=== PATIENT | female | born 2005 | race Caucasian/White ===

== ENCOUNTER 2025-01-17 01:58 | Emergency (ER) | payer OTHER, SELFPAY ==
--- OUTSIDE RECORDS SUMMARY | 2025-01-17 02:00 | XMS_ITS | Clinical Summary ---
[facility] Address [address] [place] [id number] Care Team Providers Care Watch Inspector Name Role Phone Pcp, No Primary Care Provider Unavailabl e Allergies No known active allergies Medications No known medications Encounters Date Type Department Care Team Description 01/05/2025 2:15 PM CDT Orders Only [facility] [address] [place] [address] Lab, [facility] 01/04/2025 Travel 12/13/2024 3:05 PM CDT Office Visit [facility] [address] [place] [address] Harjit Navarro MD Musculoskeletal Problem (Follow-up RIGHT Soto pain/Review MRI/Lexa Athlete ) 12/13/2024 Travel 12/08/2024 Travel 11/19/2024 2:15 PM PLYWOOD SCARFER TENDER Ancillary Procedure [facility] [id number] [place] [id number] 11/19/2024 1:30 PM PLYWOOD SCARFER TENDER Ancillary Procedure [facility] [address] [address] 11/18/2024 Travel 11/14/2024 3:00 PM PLYWOOD SCARFER TENDER Office Visit [facility] at [address] [address] Harjit Navarro MD Musculoskeletal Problem (Lexa Athlete being seen for RIGHT Soto pain) 11/14/2024 Travel from Last 3 Months Immunizations Immunization Administration Dates Next Due COVID-19 VACCINE COMIRNATY (ZENTICKET 30MCG/0.3ML) 12YO+ PFS 07/05/2024 DTaP 06/24/2010, 7,01/02/2006,12/01,2005 HIB PRP-OMP (PedvaxHIB) 2005 HPV 9 (Gardasil 9) 08/06/2016 Hepatitis A (Peds) 12/30/2006,07/01/2006 Hepatitis B (Peds) 04/03/2006, 6,2005,07/02 Hib Conjugate, Unspecified 09/28/2006,2005 Inactivated Polio Vaccine 06/24/2010,,01/02/2006,10/28 Influenza Virus, Unspecified 07/05/2024, 11/12/2023,08/06/2016,08/08,07/18/2014,07/06/2013,06/21/2012 ,06/23/2011,06/24/2010,07/24/2009,05/15,06/26/2008,06/30/2007, 7,07/23/2006 MMR 06/28/2009 MMRV 09/28/2006 Meningococcal Vaccine (Menactra) 08/06/2016 Pneumococcal conj 13-Valent (Prevnar 13) 07/01/2006,04/03/2006,01/02/2006 Pneumococcal conj 7-Valent (Prevnar 7) 6 Varicella Vaccine 06/28/2009 meningococcal B, Recombinant 05/17/2024,11/12/19 24 Social History Tobacco Use Types Packs/Day Years Used Date Smoking Tobacco: Never Tobacco Cessation:Counseling Given: Not Answered Comments No Sex and Gender Information Value Date Recorded Sex Assigned at Not on file Legal Sex Female 3:31 PM CDT Gender Identity Not on file Sexual Orientation Not on file Obstetrics History Para Term AB IAB SAB Ectopic Multiple Livin g Live Births 0 0 0 0 0 0 0 0 0 0 0 Last Filed Vital Signs Vital Sign Reading Time Taken Comments Blood Pressure 116/71 12/13/2024 3:20 PM CDT Pulse 68 12/13/2024 3:20 PM CDT Temperature - - Respiratory Rate 12 11/14/2024 10:16 PM PLYWOOD SCARFER TENDER Oxygen Saturation 99% 12/13/2024 3:20 PM CDT Inhaled Oxygen Concentration - - Weight 83.1 kg (183 lb 3.2 oz) 12/13/2024 3:20 P M CDT Height 172.7 cm (5' 8) 07/04/2024 3:18 PM CDT Body Mass Index - - Plan of Treatment Health Maintenance Due Date Last Done Comments Well Child Check for age 3-20 05/28/2008 Tdap 2016 HPV series for age 9-26 (2 - 2-dose series) 02/03/2017 08/06/2016 Depression screening for age 12+ 2017 HIV for age 15-65 2020 Chlamydia for age 16-24 2021 Hepatitis C screening for age 18-79 2023 BMI (ht and wt on same day) for age 18+ 07/04/2025 07/04/2024 Pneumococcal series for age 6-49 Completed 07/01/2006, 04/03/2006, 01/02/2006, Additional history exists Meningococcal series for age 11-21 Aged Out 08/06/2016 No longer eligible based on patient's age to complete this topic COVID-19 vaccine series Completed 07/05/2024 Influenza Vaccine Completed 07/05/2024, , 08/06/2016, Additional history exists Procedures Procedure Name Priority Date/Time Associated Diagnosis Comments VITAMIN D 25 (DEFICIENCY) Routine 01/05/2025 2:19 PM CDT Vitamin D deficiency CBC WITH AUTO DIFFERENTIAL Routine 01/05/2025 2:19 PM CDT Stress reaction of bone COMP METABOLIC PANEL Routine 01/05/2025 2:19 PM CDT Stress reaction of bone TSH WITH REFLEX Routine 01/05/2025 2:19 PM CDT Stress reaction of bone FERRITIN Routine 01/05/2025 2:19 PM CDT Stress reaction of bone MR TIBIA FIBULA LEFT WO Routine 11/19/2024 2:37 PM [employer]YWOOD SCARFER TENDER Left leg numbness MR TIBIA FIBULA RIGHT WO Routine 11/19/2024 2:36 PM [employer]YWOOD SCARFER TENDER Pain in right soto from Last 3 Months Results * TSH WITH REFLEX (01/05/2025 2:19 PM CDT) TSH W/REFLEX TO FT4 1.51 mIU/L [facility] Comment: Reference Range 1-19 Years 0.50-4.30 Ranges First trimester 0.26-2.66 Second trimester 0.55-2.73 Third trimester 0.43-2.91 Blood BLOOD SPECIMEN / Unknown 01/05/2025 2:19 PM CDT 01/05/2025 2:19 PM CDT Harjit Navarro MD CHEMISTRY Final Res ult [facility] [address] [place] [address], [facility] [address] [place] [address] * (ABNORMAL) VITAMIN D 25 (DEFICIENCY) (01/05/2025 2:19 PM CDT) VITAMIN D,25-OH,TOTAL,IA 26(L) 30 - 100 ng/mL [facility] Comment: Vitamin D Status 25-OH Vitamin D: Deficiency: <20 ng/mL Insufficiency: 20 - 29 ng/mL Optimal: > or = 30 ng/mL For 25-OH Vitamin D testing on patients on D2-supplementation and patients for whom quantitation of D2 and D3 fractions is required, the [facility](TM) 25-OH VIT D, (D2,D3), LC/MS/MS is recommended: order code 95095 (patients >2yrs). See Note 1 Note 1 For additional information, please refer to http://education.K[employer]/faq/ONA235 (This link is being provided for informational/ educational purposes only.) Blood BLOOD SPECIMEN / Unknown 01/05/2025 2:19 PM CDT 01/05/2025 2:19 PM CDT Harjit Navarro MD SEND OUTS Final Res ult [facility] [address] [place] [address], [facility] [address] [place] [address] * CBC AND DIFFERENTIAL (01/05/2025 2:19 PM CDT) Pathologist [facility] [place] WHITE BLOOD CELL COUNT 7.5 3.8 - 10.8 Thousand/u L [facility] RED BLOOD CELL COUNT 4.50 3.80 - 5.10 Million/uL [facility] HEMOGLOBIN 14.4 11.7 - 15.5 g/dL [facility] HEMATOCRIT 42.4 35.0 - 45.0 % [facility] MCV 94.2 80.0 - 100.0 fL [facility] MCH 32.0 27.0 - 33.0 pg [facility] MCHC 34.0 32.0 - 36.0 g/dL [facility] Comment: For adults, a slight decrease in the calculated MCHC value (in the range of 30 to 32 g/dL) is most likely not clinically significant; however, it should be interpreted with caution in correlation with other red cell parameters and the patient's clinical condition. RDW 11.6 11.0 - 15.0 % [facility] PLATELET COUNT 340 140 - 400 Thousand/u L [facility] MPV 9.2 7.5 - 12.5 fL [facility] ABSOLUTE NEUTROPHILS 4,395 1,500 - 7,800 cells/uL [facility] ABSOLUTE LYMPHOCYTES 2,355 850 - 3,900 cells/uL [facility] ABSOLUTE MONOCYTES 593 200 - 950 cells/uL [facility] ABSOLUTE EOSINOPHILS 90 15 - 500 cells/uL [facility] ABSOLUTE BASOPHILS 68 0 - 200 cells/uL [facility] NEUTROPHILS 58.6 % [facility] LYMPHOCYTES 31.4 % [facility] MONOCYTES 7.9 % [facility] EOSINOPHILS 1.2 % [facility] BASOPHILS 0.9 % [facility] Blood BLOOD SPECIMEN / Unknown 01/05/2025 2:19 PM CDT 01/05/2025 2:19 PM CDT Harjit Navarro MD HEMATOLOGY Final Res ult [facility] [address] [place] [address], [place] [phone] [facility] [address] [place] [address] * FERRITIN (01/05/2025 2:19 PM CDT) Pathologist [facility] [place] FERRITIN 21 16 - 154 ng/mL [facility] Blood BLOOD SPECIMEN / Unknown 01/05/2025 2:19 PM CDT 01/05/2025 2:19 PM CDT Harjit Navarro MD CHEMISTRY Final Res ult [facility] [employer] [facility] [address] [place] [address], [place] [phone] [facility] [address] [place] [address] * COMP METABOLIC PANEL (01/05/2025 2:19 PM CDT) Pathologist [facility] [place] GLUCOSE 98 65 - 99 mg/dL [facility] Comment: Fasting reference interval UREA NITROGEN (BUN) 17 7 - 20 mg/dL [facility] CREATININE 0.70 0.50 - 0.96 mg/dL [facility] EGFR 128 > OR = 60 mL/min/1. 73m2 [facility] BUN/CREATININE RATIO SEE NOTE: 6 - 22 (calc) [facility] Comment: Not Reported: BUN and Creatinine are within reference range. SODIUM 139 135 - 146 mmol/L [facility] POTASSIUM 4.3 3.8 - 5.1 mmol/L [facility] CHLORIDE 101 98 - 110 mmol/L [facility] CARBON DIOXIDE 32 20 - 32 mmol/L [facility] CALCIUM 9.9 8.9 - 10.4 mg/dL [facility] PROTEIN, TOTAL 7.2 6.3 - 8.2 g/dL [facility] ALBUMIN 4.8 3.6 - 5.1 g/dL [facility] GLOBULIN 2.4 2.0 - 3.8 g/dL (calc) [facility] ALBUMIN/GLOBULIN RATIO 2.0 1.0 - 2.5 (calc) [facility] BILIRUBIN, TOTAL 0.3 0.2 - 1.1 mg/dL [facility] ALKALINE PHOSPHATASE 75 36 - 128 U/L [facility] AST 19 12 - 32 U/L [facility] ALT 15 5 - 32 U/L [facility] Blood BLOOD SPECIMEN / Unknown 01/05/2025 2:19 PM CDT 01/05/2025 2:19 PM CDT us Harjit Navarro MD CHEMISTRY Final Res ult [facility] [address] [place] [address], [facility] [address] [place] [address] * MR TIBIA FIBULA LEFT WO (11/19/2024 2:37 PM PLYWOOD SCARFER TENDER) Anatomical Region Laterality Modality LEG L Magnetic Resonan ce 11/21/2024 5:04 PM CDT Impressions 11/21/2024 5:04 PM CDT 1. Mild stress reaction in the distal tibial diaphysis. 2. Remainder unremarkable. Dictated by Jorge Weeks MD @ 11/21/2024 5:04:24 PM (Electronically Signed) Narrative 11/21/2024 5:04 PM CDT For Patients: As a result of the Cures Act, medical imaging exams and procedure reports are released immediately into your electronic medical record. You may view this report before your referring provider. If you have questions, please contact your health care provider. EXAM: MRI OF THE LEFT TIBIA AND FIBULA, WITHOUT CONTRAST CLINICAL INDICATION: Distal soto pain. COMPARISON PLAIN FILMS: 07/07/2024 ankle and foot radiographs. COMPARISON CROSS-SECTIONAL IMAGING STUDIES: None. TECHNICAL: Axial, sagittal and coronal T1 and STIR images. FINDINGS: OSSEOUS STRUCTURES AND SOFT TISSUES: Mild periosteal edema in the anteromedial aspect of the distal tibial diaphysis. Findings consistent with stress reaction without discrete stress fracture (Fredericson grade 1). No intramedullary edema or cortical abnormality. No osseous lesion. No subcutaneous hematoma or fluid collection. MYOTENDINOUS STRUCTURES: No muscle atrophy or edema. Myotendinous junctions are maintained. No tendon tear. NEUROVASCULAR STRUCTURES: No abnormality of visualized neurovascular structures. Procedure Note Jorge Weeks MD - 11/21/2024 For Patients: As a result of the s Act, medical imagingexams and procedure reports are released immediately into your electronicmedical record. You may view this report before your referring provider.If you have questions, please contact your health care provider. EXAM: MRI OF THE LEFT TIBIA AND FIBULA, WITHOUT CONTRAST CLINICAL INDICATION: Distal soto pain. COMPARISON PLAIN FILMS: 07/07/2024 ankle and foot radiographs. COMPARISON CROSS-SECTIONAL IMAGING STUDIES: None. TECHNICAL: Axial, sagittal and coronal T1 and STIR images. FINDINGS: OSSEOUS STRUCTURES AND SOFT TISSUES: Mild periosteal edema in the anteromedial aspect of the distal tibialdiaphysis. Findings consistent with stress reaction without discretestress fracture (Fredericson grade 1). No intramedullary edema or corticalabnormality. No osseous lesion. No subcutaneous hematoma or fluidcollection. MYOTENDINOUS STRUCTURES: No muscle atrophy or edema. Myotendinous junctions are maintained. Notendon tear. NEUROVASCULAR STRUCTURES: No abnormality of visualized neurovascular structures. IMPRESSION: 1. Mild stress reaction in the distal tibial diaphysis. 2. Remainder unremarkable. Dictated by Jorge Weeks MD @ 11/21/2024 5:04:24 PM (Electronically Signed) Harjit Navarro MD MR Final Res ult * MR TIBIA FIBULA RIGHT WO (11/19/2024 2:36 PM PLYWOOD SCARFER TENDER) Anatomical Region Laterality Modality LEG R Magnetic Resonan ce 11/21/2024 5:01 PM CDT Impressions 11/21/2024 5:01 PM CDT 1. Mild periosteal edema in the anteromedial aspect of the distal tibial diaphysis. 2. Remainder unremarkable. Dictated by Jorge Weeks MD @ 11/21/2024 5:01:32 PM (Electronically Signed) Narrative 11/21/2024 5:01 PM CDT For Patients: As a result of the Cures Act, medical imaging exams and procedure reports are released immediately into your electronic medical record. You may view this report before your referring provider. If you have questions, please contact your health care provider. EXAM: MRI OF THE RIGHT TIBIA AND FIBULA, WITHOUT CONTRAST CLINICAL INDICATION: Right medial distal 3rd soto pain. COMPARISON PLAIN FILMS: None. COMPARISON CROSS-SECTIONAL IMAGING STUDIES: None. TECHNICAL: Axial, sagittal and coronal T1 and STIR images. FINDINGS: OSSEOUS STRUCTURES AND SOFT TISSUES: Mild periosteal edema in the anteromedial aspect of the distal tibial diaphysis. Findings consistent with stress reaction without discrete stress fracture (Fredericson grade 1). No intramedullary edema or cortical abnormality. No osseous lesion. No subcutaneous hematoma or fluid collection. MYOTENDINOUS STRUCTURES: No muscle atrophy or edema. Myotendinous junctions are maintained. No tendon tear. NEUROVASCULAR STRUCTURES: No abnormality of visualized neurovascular structures. Procedure Note Jorge Weeks MD - 11/21/2024 For Patients: As a result of the Cures Act, medical imagingexams and procedure reports are released immediately into your electronicmedical record. You may view this report before your referring provider.If you have questions, please contact your health care provider. EXAM: MRI OF THE RIGHT TIBIA AND FIBULA, WITHOUT CONTRAST CLINICAL INDICATION: Right medial distal 3rd soto pain. COMPARISON PLAIN FILMS: None. COMPARISON CROSS-SECTIONAL IMAGING STUDIES: None. TECHNICAL: Axial, sagittal and coronal T1 and STIR images. FINDINGS: OSSEOUS STRUCTURES AND SOFT TISSUES: Mild periosteal edema in the anteromedial aspect of the distal tibialdiaphysis. Findings consistent with stress reaction without discretestress fracture (Fredericson grade 1). No intramedullary edema or corticalabnormality. No osseous lesion. No subcutaneous hematoma or fluidcollection. MYOTENDINOUS STRUCTURES: No muscle atrophy or edema. Myotendinous junctions are maintained. Notendon tear. NEUROVASCULAR STRUCTURES: No abnormality of visualized neurovascular structures. IMPRESSION: 1. Mild periosteal edema in the anteromedial aspect of the distal tibialdiaphysis. 2. Remainder unremarkable. Dictated by Jorge Weeks MD @ 11/21/2024 5:01:32 PM (Electronically Signed) us Harjit Navarro MD MR Final Res ult from Last 3 Months Insurance [employer] Care Teams Watch Inspector Relationship Specialty Start Date End Date Pcp, No . PCP - General 07/07/24
--- OUTSIDE RECORDS SUMMARY | 2025-01-17 02:00 | XMS_ITS | Clinical Summary ---
Author Organization [facility], [facility], and [facility] Address [address] [facility] [place] [address] [place] [address] Care Team Providers Care Machine Veneer Repairer Name Role Phone Ayleen Gorman MD Unavailable Allergies No known active allergies Medications No known medications Active Problems Problem Noted Date Diagnosed Date Closed nondisplaced fracture of proximal phalanx of left thumb 08/25/2019 Social History Tobacco Use Types Packs/Day Years Used Date Smoking Tobacco: Never Smokeless Tobacco: Never Alcohol Use Standard Drinks/Week Comments Never 0 (1 standard drink = 0.6 oz pur e alcohol) AUDIT-C Answer Date Recorded Q1: How often do you have a drink containing alc ohol? Never 02/07/2020 Average Number of Drinks Not on file 020 Frequency of Binge Drinking Not on file 01/13 Comments Unknown Sex and Gender Information Value Date Recorded Sex Assigned at Not on file Legal Sex Female 12:08 PM EDT Gender Identity Not on file Sexual Orientation Not on file Plan of Treatment Health Maintenance Due Date Last Done Comments HIV SCREENING 2018 IMM: HPV (1 - 3-dose series) 2020 IMM: Meningococcal B (1 of 2 - Standard) 2021 Hepatitis C screening 2023 COVID-19 Vaccine (2023-2 5 season) 2024 IMM: DTap/ Tdap/ Td (1 - Tdap) 2024 IMM: Influenza (Season Ended) 2025 IMM: RSV (1 - 1-dose 75+ series) 2080 Pneumococcal Vaccine: Pediat rics (0 to 5 Years) and At-Risk Patients (6 to 49 Years) Aged Out No longer eligible b ased on patient's age to complete [place] [address] [employer] [place] [address] [place] [address] [place] [place] [address] [place] [address] [place] [address] Care Teams Machine Veneer Repairer Relationship Specialty Start Date End Date Ayleen Gorman MD [address] [place] [address] Attending Physician Pediatric - General 02/07/20
--- OUTSIDE RECORDS SUMMARY | 2025-01-17 02:01 | XMS_ITS | Data Portability ---
Author Organization [place] [facility] [place] Address [address] [address] Assessment No assessment recorded. Plan of Treatment Reminders Order Date Submit Date Provider Last Modified By Organization Details Last Modified Time Details Appointments None recorded. Lab unlisted lab - sickle cell screen 2023 024 [facility], [address], [place], [address], 03:26:52 unlisted lab - ferritin 2023 024 [facility], [address], [place], [address], 03:26:52 test, urine 2023 024 rowena 40 CP [facility], [address] [place] [address], [address], 4 12:40:08 CBC w/ auto diff 2023 024 basil 98 [facility], [address] [place] [address], [address], 16:31:34 urinalysis, dipstick 2023 024 basil 98 [facility], [address] [place] [address] [place], [address], 16:31:36 test, urine 2023 024 basil 98 [facility], [address] [facility] [address], [address], [place], [address], 16:31:38 CT + NG RNA, PCR, unspecified specimen 2023 024 MILAN [facility], [address] [place] [address] Rd, [address], [place], [address], 12:36:30 Referral None recorded. Procedures None recorded. Surgeries None recorded. Imaging None recorded. Medication Orders None recorded. Patient TargetsNo targets recorded. Patient Instructions Encounter Date Encounter Id Patient Instructions Last Modified By Organization Details Last Modified Time 11/12/2023 [id number] pediatric health questionnaire for adolescent* [email or web address] Not available 11/12/2023 16:31:31 taty GREEN e abuse screening for adolescents* [email or web address] Not available 11/12/2023 16:31:31 vision screen: Snellen* Not available 11/12/2023 16:31:37 05/17/2024 [id number] venous blood draw* [email or web address] Not avai lable 05/24/2024 14:54:29 Reason for Referral None Reported. Results Created Date Observation Date Name Description Value Unit Range Abnormal Flag Note LastModifiedBy Organization Detail LastModifiedTime 11/12/1911/13/2023 CHLAM YDIA/ N. GONOR RHOEA E RNA, TMA, UROGE NITAL chlamydia trachomatis RNA, tma, urogenital NOT DETECT ED not detect ed normal Not Available [facility] - [place] [address] [place], [address], 11/13/2023 12:36:30 11/12/19 24 11/13/2023 CHLAM YDIA/ N. GONOR RHOEA E RNA, TMA, UROGE NITAL neisseria gonorrhoeae RNA, tma, urogenital NOT DETECT ED not detect ed normal Not Available [facility] [place], [address], 11/13/2023 12:36:30 11/12/19 24 11/13/2023 ALETA PENA/ Elizabeth WRAYOR RHOEA E RNA, TMA, UROGE NITAL comment The markus tical perfo rmanc e elvie cteri stics of this assay , when used to test SureP ath(T M) speci mens have been deter mined by [facility]. The modif icati ons have not been clear ed or appro rosa by the FDA. This assay has been valid ated pursu ant to the CLIA regul ation s and is used for clini linda purpo ses. For addit ional infor sangeetha huynh e refer to https ://ed ucati on.qu estAgilis Systems. ProBueno/f aq/FA Q154 (This link is being provi ded for infor edmond smyth/ aditya agostoona l purpo ses only. ) Not Available [facility] [address] [place], [address], 11/13/2023 12:36:30 11/12/19 24 11/12/2023 pregn adam test, urine HCG negati ve Not Available [facility] [address] [place] [address], [address], 11/12/2023 15:57:15 11/12/19 24 11/12/2023 urina lysis , dipst ick Leukocytes Negati ve Not Available [facility] [address] [place] [address], [address], 11/12/2023 08:44:47 11/12/19 24 11/12/2023 urina lysis , dipst ick Nitrite Negati ve Not Available [facility] [address] [place] [address], [address], 11/12/2023 08:44:47 11/12/19 24 11/12/2023 urina lysis , dipst ick Urobilinogen .2 Not Available [facility] , [place], [address], 11/12/2023 08:44:47 11/12/19 24 11/12/2023 urina lysis , dipst ick Protein Negati ve Not Available [facility] , [place], [address], 11/12/2023 08:44:47 11/12/19 24 11/12/2023 urina lysis , dipst ick pH 6.0 Not Available [facility] , [place], [address], 11/12/2023 08:44:47 11/12/19 24 11/12/2023 urina lysis , dipst ick Blood Negati ve Not Available [facility] , [place], [address], 11/12/2023 08:44:47 11/12/19 24 11/12/2023 urina lysis , dipst ick Specific [place] 1.015 Not Available [facility] , [place], [address], 11/12/2023 08:44:47 11/12/19 24 11/12/2023 urina lysis , dipst ick Ketone Negati ve Not Available [facility] [address] [place] [address], [place], [address], 11/12/2023 08:44:47 11/12/19 24 11/12/2023 urina lysis , dipst ick Bilirubin Negati ve Not Available [facility] [address] [place] [address], [place], [address], 11/12/2023 08:44:47 11/12/19 24 11/12/2023 urina lysis , dipst ick Glucose Negati ve Not Available [facility] [address] , [place], [address], 11/12/2023 08:44:47 11/12/19 24 11/12/2023 urina lysis , dipst ick Appearance Clear Not Available [facility] , [place], [address], 11/12/2023 08:44:47 11/12/19 24 11/12/2023 urina lysis , dipst ick Color Yellow Not Available [facility] , [place], [address], 11/12/2023 08:44:47 11/12/19 24 11/12/2023 CBC w/ auto diff WBC 7.5 thous and/u L Not Available [facility] , [place], [address], 11/12/2023 08:44:47 11/12/19 24 11/12/2023 CBC w/ auto diff RBC carrie on/uL Not Available [facility] [address] [place] [address], [place], [address], 11/12/2023 08:44:47 11/12/19 24 11/12/2023 CBC w/ auto diff hemoglobin 14.9 g/dL Not Available [facility] , [place], [address], 11/12/2023 08:44:47 11/12/19 24 11/12/2023 CBC w/ auto diff hematocrit 44.0 % Not Available [facility] , [place], [address], 11/12/2023 08:44:47 11/12/19 24 11/12/2023 CBC w/ auto diff MCV fL Not Available [facility] [address] [place] [address], [place], [address], 11/12/2023 08:44:47 11/12/19 24 11/12/2023 CBC w/ auto diff MCH pg Not Available [facility] [address] [place] [address], [place], [address], 11/12/2023 08:44:47 11/12/19 24 11/12/2023 CBC w/ auto diff MCHC g/dL Not Available [facility] [address] [place] [address], [place], [address], 11/12/2023 08:44:47 11/12/19 24 11/12/2023 CBC w/ auto diff RDW % Not Available [facility] [address] [place] [address], [place], [address], 11/12/2023 08:44:47 11/12/19 24 11/12/2023 CBC w/ auto diff platelet count 314. Not Available [facility] [address] [place] [address], [place], [address], 11/12/2023 08:44:47 11/12/19 24 11/12/2023 CBC w/ auto diff MPV fL Not Available [facility] [address] [place] [address], [place], [address], 11/12/2023 08:44:47 11/12/19 24 11/12/2023 CBC w/ auto diff absolute lymphocytes thous and/u L Not Available [facility] [address] [place] [address], [place], [address], 11/12/2023 08:44:47 11/12/19 24 11/12/2023 CBC w/ auto diff absolute monocytes thous and/u L Not Available [facility] [address] [place] [address], [place], [address], 11/12/2023 08:44:47 11/12/19 24 11/12/2023 CBC w/ auto diff lymphocytes % Not Available [facility] [address] , [place], [address], 11/12/2023 08:44:47 11/12/19 24 11/12/2023 CBC w/ auto diff monocytes % Not Available [facility] , [place], [address], 11/12/2023 08:44:47 11/12/19 24 11/12/2023 CBC w/ auto diff granulocytes % Not Available [facility] [address] [place], [address], 11/12/2023 08:44:47 11/12/19 24 11/12/2023 CBC w/ auto diff absolute granulocytes thous and/u L Not Available [facility] [address] , [place], [address], 11/12/2023 08:44:47 11/12/19 24 11/12/2023 visio n scree n: Marilee en* Unknown Analyte Uncorr ected Not Available [facility] [address] [place], [address], 11/12/2023 15:43:19 11/12/19 24 11/12/2023 visio n scree n: Marilee en* Unknown Analyte 20/ Not Available [facility] , [place], [address], 11/12/2023 15:43:19 11/12/19 24 11/12/2023 visio n scree n: Marilee en* Unknown Analyte Uncorr ected Not Available [facility] [address] [place], [address], 11/12/2023 15:43:19 02/29/11/12/2023 visio n scree n: Marilee en* Unknown Analyte Not Available [facility] [address] [place], [address], 11/12/2023 15:43:19 05/17/20 24 05/18/2024 SICKL E CELL SCREE N sickle cell screen NEGATI VE negati ve normal Hemog lobin solub ility testi ng alone is insuf ficie nt for detec ting or confi rming the prese nce of sickl ing hemog lobin s in some situa tions . Addit ional testi ng may be requi red for diagn osis of hemog lobin opath ies. For addit ional infor sangeetha huynh refer to http: //[facility] mick smyth.que stdia gnost ics.c om/fa q/FAQ 99v1 (This link is being provi ded for infor edmond alcazar/ eductobias rubio purpo ses only. ) Not Available [facility] [place], [address], 05/18/2024 22:10:22 05/17/20 24 05/18/2024 JOANNE TIN ferritin 17 NG/mL 6-67 normal Not Available [facility] [place], [address], 05/18/2024 03:26:52 05/17/20 24 05/17/2024 pregn adam test, urine HCG negati ve Not Available [facility] [address] [place], [address], 05/17/2024 10:46:07 Result Notes None recorded. Problems Name Problem SNOMED Code Status Onset Date Resolution Date Notes Provider Name and Address Organization Details Recorded Time Well child visit Completed 201206/17/2023 10/23/19 22 - Comments only - Sharon Muñiz MD - Growth and developm ent assessed Guidance provided and question s answered Confiden tial guidance provided Counsele d on diet and exercise Dentist every 6 months Eye doctor referral CBC and UA reviewed BP and vision reviewed Due for vaccinat ions today; Menactra and flu vaccines Follow up in 1 year TeenScre en results reviewed and discusse d with patient. No identifi ed risk factors for depressi on or other mental illness. Provided counseli ng on the diseases to be vaccinat ed against as well as the risks/be nefits of providin g and withhold ing recommen ded vaccines to be given today to Rosangela barry. All question s were answered and the parent verbaliz ed understa nding. VIS made availabl e. Problem Code: Z00.129; Problem Code Type: ICD-10; Not Available [facility] 3 00:44:37 Acute pharyngi tis [id number] Completed 201211/10/2013 09/09/20 13 - Comments only - Sofia Edwards MD - Rapid strep test negative . The throat culture has been sent to the lab. We will call patient if throat culture is positive and prescrib e an antibiot ic treatmen t. In the meantime , I recommen d rest and fluids. Fever and pain control discusse d. If fever lasts for more than 4 to 5 days, or if symptoms are worsenin g, patient should return to the office for reevalua tion. Would stat away form otehr relatibv es until she is well - EMR Migratio n Problem Code: J02.9; Problem Code Type: ICD-10; Not Available [facility] 3 00:44:37 Increase d frequenc y of urinatio n [id number] Completed 201301/23/2014 11/24/19 14 - Comments only - Dc tillman MD - UA looks decent;W ill hold off on treatmen t until UC results tomorrow ;Push alot of fluids today.Mo m in agreemen t with plan. - EMR Migratio n Problem Code: R35.0; Problem Code Type: ICD-10; Not Available [facility] 3 00:44:37 Exercise s educatio n, guidance , and counseli ng Completed 201909/21/2020 Problem Code: Z71.82; Problem Code Type: ICD-10; Not Available [facility] 3 00:44:38 Eating disorder 62059498 Completed 201906/17/2023 01/30/20 20 - Comments only - Sharon Muñiz MD - [facility]erred [facility] Provided list of contacts for eating disorder specialt y treatmen t Will follow up with Mom pending lab and EKG results for inpatien t vs. outpatin et therapy Discusse d reasons to seek care and how to reach doctor application development consultant - EMR Migratio n Problem Code: F50.9; Problem Code Type: ICD-10; Not Available [facility] 3 00:44:38 Abnormal weight loss 016358852 Completed 201906/17/2023 01/30/20 20 - Comments only - Sharon Muñiz MD - Concern for eating disorder . Patient at 73% of ideal body weight for height. Referral list provided for disorder ed eating speciali st Labs sent today; pending labs and EKG will recommen d inpatien t vs outpatin et therapy Patient to eat 3 meals a day of foods of her choice, eliminat e high calorie burning activiti es (ie basketba ll drills but ok to shoot foul shots). Ok to go on casual walks outside with mom for mental health and fresh air, no running until further evaluati on Advised on reasons to seek care in emergenc y room and how to reach doctor application development consultant - EMR Migratio n Problem Code: R63.4; Problem Code Type: ICD-10; Not Available [facility] 3 00:44:38 Bradycar nicolas [id number] Completed 201906/17/2023 Problem Code: R00.1; Problem Code Type: ICD-10; Not Available [facility] 3 00:44:38 Hypoglyc emia 637245784 Completed 201906/17/2023 Problem Code: E16.2; Problem Code Type: ICD-10; Not Available [facility] 3 00:44:38 Disorder of bilirubi n metaboli sm 69676951 Completed 201906/17/2023 Problem Code: E80.6; Problem Code Type: ICD-10; Not Available [facility] 3 00:44:38 Anorexia nervosa, restrict ing type 59852994 Completed 201906/17/2023 09/27/19 21 - Comments only - Sharon Muñiz MD - Continue to recommen d eating disorder therapy despite paitent' s success in maintain ing weight and vegan diet - EMR Migratio n Problem Code: F50.01; Problem Code Type: ICD-10; Not Available [facility] 3 00:44:38 Loss of appetite 50689888 Completed 201906/17/2023 10/23/19 22 - Comments only - Sharon Muñiz MD - Not currentl y in therapy and not interest ed in returnin g to therapy Appropri ate weight gain from prior visit Problem Code: R63.0; Problem Code Type: ICD-10; Not Available [facility] 3 00:44:38 Exercise s educatio n, guidance , and counseli ng Completed 202009/27/2021 Problem Code: Z71.82; Problem Code Type: ICD-10; Not Available [facility] 3 00:44:38 Major depressi on, single episode 06822799 Completed 202006/17/2023 09/27/19 21 - Comments only - Sharon Muñiz MD - Concerns for depressi on in confiden tial intervie w today. With Geneviev e's permissi on, discusse d with mom and recommen ded therapy. `~~`Roger es SI/HI. - EMR Migratio n Problem Code: F32.9; Problem Code Type: ICD-10; Not Available [facility] 3 00:44:39 Disorder of pigmenta tion 072996098 Completed 202006/17/2023 09/27/19 21 - Comments only - Sharon Muñiz MD - Rough patches of hyperpig mentatio n on bilatera l upper extremit ies and left ankle. `~~`Refe r to dermatol ogy - EMR Migratio n Problem Code: L81.9; Problem Code Type: ICD-10; Not Available [facility] 3 00:44:39 Exercise s educatio n, guidance , and counseli ng Completed 202110/24/2021 Problem Code: Z71.82; Problem Code Type: ICD-10; Not Available [facility] 00:44:39 Amenorrh ea 53981346 Active 202110/24/19 - Comments only - Sofia Edwards MD - discuss possible etiology SHe needs to see Endo / AGRI BUSINESS AGENT at increase d risk for osteoper osis may expect heavy menses due to unoppose d estrogen may consider trial of Provera once evaluati on is complete d Problem Code: N91.2; Problem Code Type: ICD-10; Not Available [facility] 00:44:39 Normal weight 48603075 Completed 202210/29/2022 Problem Code: Z68.52; Problem Code Type: ICD-10; Not Available [facility] 00:44:39 Adolesce nt care Active 202210/24/19 - Comments only - Sofia Edwards MD - School form given. TeenScre en results reviewed and discusse d with patient. No identifi ed risk factors for depressi on or other mental illness. A drug and alcohol abuse screen was performe d and no areas of concern were identifi ed. The results were reviewed with the patient. Pediatri c symptom checklis t was reviewed and discusse d with parent/g uardian. There were no answers which were of concern, or indicati ve of cognitiv e, emotiona l or behavior al disturba nce. Tubercul osis risk assessme nt complete d and no risk factors identifi ed. CBC Ua within normal limits' Anticipa tory guidance given; immuniza tions reviewed and updated. RTC in 1 year, sooner prn. Provided counseli ng on the diseases to be vaccinat ed against as well as the risks/be nefits of providin g and withhold ing recommen ded vaccines to be given today to Rosangela barry. All question s were answered and the parent verbaliz ed understa nding. VIS made availabl e. Problem Code: Z00.3; Problem Code Type: ICD-10; Not Available [facility] 3 00:44:39 Primary amenorrh ea 218184611 Active 2022 Problem Code: N91.0; Problem Code Type: ICD-10; Not Available [facility] 3 00:44:39 Exercise s educatio n, guidance , and counseli ng Completed 202210/29/2022 Problem Code: Z71.82; Problem Code Type: ICD-10; Not Available [facility] 3 00:44:39 Sciatica 20626822 Active 202210/24/19 23 - Comments only - Sofia Edwards MD - given dx of sciatica Pain is interfer ing with her running and she is getting no relief from PT plan Sports med consult Problem Code: M54.30; Problem Code Type: ICD-10; Not Available [facility] 3 00:44:40 Acute pharyngi tis 808971584 Active 202202/18/20 - Comments only - Ashish Ross MD - strep neg Patient most likely with a viral illneess . Symptoma tic treatmen t was discusse d with parent/c aregiver . Signs and symptoms of worsenin g were discuss. Call office if no improvem ent or symptoms worsen. Problem Code: J02.9; Problem Code Type: ICD-10; Not Available [facility] 3 00:44:40 Exposure to viral hepatiti s Completed 202010/24/2022 Problem Code: Z20.5; Problem Code Type: ICD-10; Not Available [facility] 3 00:44:40 Puncture wound of left foot [id number] 720009 Completed 202010/24/2022 Problem Code: S91.332A ; Problem Code Type: ICD-10; Not Available [facility] 3 00:44:40 Fever 662574574 Completed 201910/24/2022 Problem Code: R50.9; Problem Code Type: ICD-10; Not Available [facility] 3 00:44:40 Scar conditio ns and fibrosis of skin 771352099 Completed 201710/24/2022 Problem Code: L90.5; Problem Code Type: ICD-10; Not Available [facility] 3 00:44:40 Exposure to Human immunode ficiency virus Completed 202010/24/2022 Problem Code: Z20.6; Problem Code Type: ICD-10; Not Available [facility] 3 00:44:40 Itching of skin 829449972 Completed 201710/24/2022 Problem Code: L29.8; Problem Code Type: ICD-10; Not Available [facility] 3 00:44:41 Abdomina l pain 66923472 Completed 201306/17/2023 12/28/19 14 - Comments only - Dc tillman MD - Probaly mild viral GE;Clear s onlr till am;Call in am. - EMR Migratio n Problem Code: R10.9; Problem Code Type: ICD-10; Not Available [facility] 3 00:44:41 Underwei ght 208459397 Completed 201906/17/2023 Problem Code: Z68.51; Problem Code Type: ICD-10; Not Available [facility] 3 00:44:41 Streptoc occal sore throat 73294857 Completed 201212/23/2014 12/24/19 13 - Comments only - Ashish Ross MD - Instruct ed to take antibiot ic as prescrib ed. Possible adverse reaction s and side effects discusse d. Recommen d hydratio n and rest. May use analgesi a. May return to school after 24 hours of antibiot ics. Medicati ons: AMOXICIL STACIE 400 MG/5ML SUSR - 10 ml PO BID for 10 days - EMR Migratio n Problem Code: J02.0; Problem Code Type: ICD-10; Not Available [facility] 3 00:44:41 Acute laryngit is 5406889 Completed 201211/08/2013 09/09/20 13 - Comments only - Sofia Edwards MD - probably virla warm liquids fluids himid air - EMR Migratio n Problem Code: J04.0; Problem Code Type: ICD-10; Not Available [facility] 3 00:44:41 Amenorrh ea 69437306 Completed 01/14202006/18/2023 09/27/19 21 - Comments only - Sharon Muñiz MD - Discusse d that it can be normal to have period prior to turning 16yo. Gave name of flaco regard if patient does not start with menses prior to 16yo birthday . - EMR Migratio n Problem Code: N91.2; Problem Code Type: ICD-10; Not Available [facility] 3 00:44:41 Impetigo 94743224 Completed 201910/24/2022 Problem Code: L01.00; Problem Code Type: ICD-10; Not Available [facility] 3 00:44:41 Immuniza tion due 328955665 Completed 201910/24/2022 ProblemC ode: 'Z28.3'; ProblemC odeType: 'ICD-10' ; Not Available [facility] 3 00:44:42 Diet educatio n Completed 202210/29/2022 ProblemC ode: 'Z71.3'; ProblemC odeType: 'ICD-10' ; Not Available [facility] 3 00:44:42 Acute sinusiti s 80433890 Active 202207/06/20 23 - New - Natalie Smith [employer]IM[employer] - Discusse d finding with Rosangela barry and explaine d that most sinus or upper resp infecgti ons are viral. Reviewed symptoma tic treatmen t. Covid rapid negative , sent out a PCR due to recent immediat e exposure . Continue to take at home tests and reurn to office if sx persist or worsen after the next 7 days. Problem Code: J01.90; Problem Code Type: ICD-10; Not Available [facility] 4 18:25:52 Problem Notes None recorded. Procedures Surgical History Date Name Laterality Status Provider Name and Address Organization Details Recorded Time 4 Capillary Blood Draw completed Natalie Smith NP [address], [place], [address], [facility] 11/12/2023 16:27:56 4 sASQ Ask Suicide Screening Questions completed Natalie Smith NP [address], [place] [phone] [place] [address] 11/12/2023 16:28:07 4 BRYAN-7 (General Anxiety Disorder-7) completed Natalie Smith NP [address], [place], [address], [facility] 11/12/2023 16:27:58 4 TB Risk Assessment for Pad5/Mobile completed Natalie Smith NP [address], [place], [address], [facility] 11/12/2023 16:28:02 4 PHQ 2/9 pad5/Mobile (Standard) completed Natalie Smith NP [address], [address] [place] [address] 11/12/2023 16:27:59 4 PSC-17 Padx/Mobile (Standard) completed Natalie Smith NP [address] [phone] [place] [address] 11/12/2023 16:28:00 Imaging Results None recorded. Procedure Notes None recorded. Medical Equipment None Reported. Allergies No known drug allergies Medications Name Sig Start Date Stop Date Status Note LastModified by Organization Details LastModified Time Augmentin 875 mg-125 mg tablet Take 1 tablet by mouth twice a day 06/01 completed Not Available Not Available Not Available amoxicill in 400 mg/5 mL oral suspensio n 10 ml PO BID for 10 days 01/02 completed - EMR Migration Not Available Not Available Not Available Vitals Date Recorded Body height Body mass index (BMI) [Percentile] Per age and sex Body mass index (BMI) Body weight Systolic blood pressure Diastolic blood pressure Provider Name and Address Organization Details Last Updated DateTime 4 170.18 cm 70 % 23.3 kg/m2 42310.5 4 g 120 mm[Hg] 76 mm[Hg] AMINA ARCHIBALDQUALIN I [facility] 4 15:43:06 Social History Question Answer Notes LastModified by Organizat ion Details LastModified Time Tobacco Smoking Status Never Smoker Natalie Smith NP [address], [place], [address], [facility] 11/12/2023 16:25:17 Do You Have An Advance Directive? No [email or web address] Information not available 11/12/2023 Are You Blind Or Do You Have Difficulty Seeing? No [email or web address] Information not available 11/12/2023 Are You Currently Employed? No [email or web address] Information not available 11/12/2023 Are You Deaf Or Do You Have Serious Difficulty Hearing? No [email or web address] Information not available 11/12/2023 Have There Been Any Changes To Your Family Or Social Situation? No [email or web address] Information no t available 11/12/2023 Are There Any Guns Present In Your Home? No Information not available 11/12/2023 Do You Have A Medical Power Of Drain Technician? No [email or web address] Information not available 11/12/2023 Do You Use Your Seat Belt Or Car Seat Routinely? Yes [email or web address] Information not available 11/12/2023 Are You Sexually Active? No [email or web address] Information not available 11/12/2023 Are There Any Smokers In Your House? No [email or web address] Information not available 11/12/2023 Do You Use Any Illicit Or Recreational Drugs? No [email or web address] Information not available 11/12/2023 Have You Recently Traveled Abroad? No [email or web address] Information not available 11/12/2023 Are You Currently In School? Yes [email or web address] Information not available 11/12/2023 Do You Have Any Dietary Restrictions? No [email or web address] Information not available 11/12/2023 Sex: Female Functional Status Question Answer Note LastModified by Organizat ion Details LastModified Time Do you have difficulty walking or climbing stairs? No [email or web address] Information not available 11/12/2023 Do you have transportation difficulties? No Information not available 11/12/2023 Are you able to walk? YESWOREST Information not available 11/12/2023 Do you have difficulty doing errands alone? No [email or web address] Information not available 11/12/2023 Are you able to care for yourself? Yes [email or web address] Information not available 11/12/2023 Do you have difficulty dressing or bathing? No [email or web address] Information not available 11/12/2023 Mental Status Question Answer Note LastModified by Organization D etails LastModified Time Do you have difficulty concentrating, remembering or making decisions? No [email or web address] Information no t available 11/12/2023 Family History Nothing Reported. Medical History No medical history recorded. Gynecological History Statement/Question Response Flow Moderate Frequency of Cycle (Q days) 30 Date of LMP 11/11/2023 Sexually Active? N STIs/STDs N Duration of Flow (days) 5 LMP Definite N Obstetrics History GPAL:G 0 P 0 0 0 0 Immunizations Vaccine Type Date Status Note Provider Nam e and Address Organization Details Recorded Time meningococcal B, recombinant 4 completed Sofia Edwards MD [address], [place], [id number] [place] [address] 05/17/2024 12:17:25 MMR 7 completed Not Available [facility] 08/05/2023 12:11:31 MMR 9 completed Natalie Smith NP [address], [place] [id number] [place] [address] 11/12/2023 08:38:46 DTaP 6 completed Not Available [facility] 08/05/2023 12:11:32 DTaP 6 completed Not Available [facility] 08/05/2023 12:11:32 DTaP 7 completed Not Available [facility] 08/05/2023 12:11:32 DTaP 6 completed Natalie Smith NP [address], [facility] [id number] [place] [address] 11/12/2023 08:38:47 DTaP 0 completed Not Available [facility] 08/05/2023 12:11:32 varicella 7 completed Not Available [facility] 08/05/2023 12:11:32 varicella 9 completed Natalie Smith NP [address] [id number] [place] [address] [facility] 11/12/2023 08:38:47 HPV, unspecified formulation 6 completed Natalie Smith NP [address], [facility] [address] [place] [address], [facility] 11/12/2023 08:38:47 polio, unspecified formulation 0 completed Natalie Smith [employer] [address], [place], [address] [place] [address], [facility] 11/12/2023 08:38:47 polio, unspecified formulation 6 completed Natalie Smith [employer] [address], [place], [address] [place] [address], [facility] 11/12/2023 08:38:47 Hib, unspecified formulation 6 completed Natalie Smith [employer] [address], [place] [address], [facility] 11/12/2023 08:38:46 Hib, unspecified formulation 6 completed Natalie Smith [employer] [address], [place] [address], [facility] 11/12/2023 08:38:46 influenza, unspecified formulation 6 completed Not Available [facility] 08/05/2023 12:11:32 Hep A, unspecified formulation 7 completed Natalie Smith NP [address], [place] [address], [facility] 11/12/2023 08:38:47 influenza, unspecified formulation 0 completed Not Available [facility] 08/05/2023 12:11:33 polio, unspecified formulation 6 completed Natalie Smith [employer] [address], [place], [address] [place] [address], [facility] 11/12/2023 08:38:47 polio, unspecified formulation 7 completed Natalie Smith [employer] [address], [place] [address], [facility] 11/12/2023 08:38:47 influenza, unspecified formulation 2 completed Not Available [facility] 08/05/2023 12:11:33 Hep A, unspecified formulation 6 completed Natalie Smith [employer] [address], [place] [address], [facility] 11/12/2023 08:38:47 meningococcal ACWY, unspecified formulation 6 completed Not Available [facility] 08/05/2023 12:11:33 Hib, unspecified formulation 7 completed Natalie Smith, [employer] [address], [place], [address] [place] [address], [facility] 11/12/2023 08:38:46 influenza, unspecified formulation 1 completed Not Available [facility] 08/05/2023 12:11:33 influenza, unspecified formulation 3 completed Not Available [facility] 08/05/2023 12:11:33 influenza, unspecified formulation 4 completed Not Available [facility] 08/05/2023 12:11:33 Hep B, unspecified formulation 5 completed Natalie Smith [employer] [address], [place], [address] [place] [address], [facility] 11/12/2023 08:38:47 Hep B, unspecified formulation 5 completed Natalie Smith [employer] [address], [place], [address] [place] [address], [facility] 11/12/2023 08:38:47 Hep B, unspecified formulation 6 completed Natalie Smith [employer] [address], [place], [address] [place] [address], [facility] 11/12/2023 08:38:47 influenza, unspecified formulation 0 completed Natalie Smith [employer] [address], [place], [address] [place] [address], [facility] 11/12/2023 08:38:47 meningococcal ACWY, unspecified formulation 2 completed Not Available [facility] 08/05/2023 12:11:34 influenza, unspecified formulation 2 completed Natalie Smith, [employer] [address], [place], [address] [place] [address], [facility] 11/12/2023 08:38:47 Hep B, unspecified formulation 6 completed Natalie Smith [employer] [address], [place], [address] [place] [address], [facility] 11/12/2023 08:38:47 pneumococcal, unspecified formulation 6 completed Not Available [facility] 08/05/2023 12:11:34 Novel [id number], all formulations 9 completed Natalie Smith [employer] [address], [place], [address] [place] [address], [facility] 11/12/2023 08:38:47 pneumococcal, unspecified formulation 6 completed Not Available [facility] 08/05/2023 12:11:34 pneumococcal, unspecified formulation 6 completed Not Available [facility] 08/05/2023 12:11:34 pneumococcal, unspecified formulation 6 completed Not Available [facility] 08/05/2023 12:11:34 influenza, unspecified formulation 5 completed Natalie Smith [employer] [address], [place], [address] [place] [address], [facility] 11/12/2023 08:38:47 influenza, unspecified formulation 3 completed Not Available [facility] 08/05/2023 12:11:34 Tdap 7 completed Not Available [facility] 08/05/2023 12:11:35 HPV, unspecified formulation 8 completed Natalie Smith [employer] [address], [place], [address] [place] [address], [facility] 11/12/2023 08:38:47 influenza, unspecified formulation 7 completed Natalie Smith [employer] [address], [place], [address] [place] [address], [facility] 11/12/2023 08:38:47 influenza, unspecified formulation 8 completed Natalie Smith [employer] [address], [place], [address] [place] [address], [facility] 11/12/2023 08:38:47 influenza, unspecified formulation 9 completed Natalie Smith [employer] [address], [place], [address] [place] [address], [facility] 11/12/2023 08:38:47 meningococcal B, recombinant 4 completed Natalie Smith NP [address], [place], [address], [facility] 11/12/2023 16:31:31 Influenza, split virus, quadrivalent, PF 4 completed Natalie Smith NP [address], [place], [address], [facility] 11/12/2023 16:34:36 Past Encounters Encounter ID Performer Location Encounter Start Date Encounter Closed Date Diagnosis/Indication Diagnosis SNOMED-CT Code Diagnosis ICD10 Code Diagnosis Note [id number] Natalie Smith NP [facility] [address], [place] [address] 11/12/2023 15:24:03 11/12/2023 23:52:05 Well child visit 908957631 Z00.129 Growth and developmen t assessedGu idance provided and questions answeredCo nfidential guidance providedCo unseled on diet and exerciseDe ntist every 6 monthsCBC and UA reviewedBP and vision reviewed - needs to follow up with the eye doctorTeen Screen and CRAFFT results reviewed and discussed with patient. No identified risk factors for depression or other mental illness.Tb screen completed, no risk factorsSch ool form providedFU in 1 year Active immunization 3380 9002 Z23 Provided counseling on the diseases to be vaccinated against as well as the risks/bene fits of providing and withholdin g recommende d vaccines to be given today. All questions were answered and the parent verbalized understand ing. VIS made available. Venereal d isease screening 943038530 Z11.3 urine for Genprobe Gonorrhea & Chlamydia per AAP recommenda tions Normal bod y mass index 75547546 Z68.23 BMI: 23.3, performs regular exercise and has a well balanced diet without restrictio ns Exercises education, guidance, and counseling 674546933 Z71.82 Exercise habits reviewed. Counseled on the benefits of regularly moving one's body and the relationsh ip of exercise to growth and developmen t. Depression screening 171 564322 Z13.31 Screenings reviewed and discussed Dietary ma nagement surveillance 599321695 Z71.3 Eating habits reviewed. Counseled on the benefits of good nutrition and the relationsh ip of diet to growth and developmen t. [id number] Sofia Edwards MD [facility] [address], [place] [address] 05/17/2024 10:20:15 05/17/2024 12:53:10 Active immunization 48271250 Z23 Anticipato ry guidance given; immunizati ons reviewed and updated. PLan on school fluzone when available History an d physical examination, sports participation 900800857 Z02.5 Venipunctu re required the expertise of the provider because of the patients condition, the difficulty of the blood draw and/or the necessity to expedite results. Sickle and ferritin pendingpap erwork to be done Health Concerns Section Related Observation LastModified by Organization Detai ls LastModified Time None Recorded Concern Status LastModified by Organization Details LastModified Time None Recorded Advance Directives Directive N: Payers Encounter Date Sequence Insurance Name Policy Number Policy Marlow Covered Member ID Marlow Member ID Guarantor Name 11/12/2023 1 [employer] (PPO) [id number] Alesia Bustamante [id number] Marizasunil Bustamante 05/17/2024 1 [employer] (PP[employer]) [id number] Alesia Bustamante [id number] Mariza Bustamante Notes Date Note Type Note Provider Name and Address Organization Details Recorded Time 05/17/2024 text/html She will be attending [employer] in [place] She will be running track and needs Sickle prep and Ferritin level for paperworkShe also needs Men B before leaving for school next week Paperwork needs to be completed Sofia Edwards MD [address], [place], [address], [facility] 05/17/2024 12:22:10 OBGyn Episode No OBEpisode recorded.
--- OUTSIDE RECORDS SUMMARY | 2025-01-17 02:01 | XMS_ITS | Continuity of Care Document ---
Author Organization [facility] Address [address] [place] [address] Phone Care Team Providers Care Rehab Aide Name Role Phone Hi Elizabeth MD Unavailable Unavailabl e Allergies, Adverse Reactions, Alerts Substance Reaction Status Criticality No Known Allergies Active No Inform ation Medications Medication Instructions Dosage Effective Dates (start - stop) Status Comments amoxicillin 875 mg-potassium clavulanate 125 mg tablet take 1 tablet by oral route every 12 hours 1.00 tablet - No Longer Active Problems Condition Type Effective Dates (start - stop) Clini linda Status Comments No Known Problems Procedures Procedure Date Diagnostic Nasal Endoscopy Tympanometry OV, Estab Pt, Level III Binocular Microscopy OV, New Pt, Level III Advance Directives Directive Yes / No Effective Date File Name No Information Encounters Encounter Description Practice Location Reason(s) For Visit Diagnoses Date Provider Providers Copied on Encounter [facility], [address], [place], [place], [id number], [place] tel:[phone] [facility] No Information 5 Clara Do[address], [place], [place], [id number], [place]. tel:[phone] OV, Estab Pt, Level III [facility], [address], [place], [place], [id number], tel:[phone] [facility] Ear fullness (chief complaint)So re throat (chief complaint)Na misha congestion (chief complaint) Chronic rhinitisPain in throatOther specified disorders of Eustachian tube, bilateral [address] [facility] [address], [place], [place], [id number], . tel:[phone] OV, New Pt, Level III [facility], [address], [place], [place], [id number], tel:[phone] [facility] Right ear feels plugged- (chief complaint) Dysfunction of right eustachian tube [address] B[address] [facility] [address], [place], [place], [id number], [place]. tel:[phone] Family History Family Member Type Diagnosis Age At Onset No Information Payers Payer name Insurance type Covered green party ID Authorkaren bejarano(sStanton Vázquez PPO PAR CI [id number] Social History Type Description Quantity Date Captured Comments Sex Female Smoking Status No Information Chief Complaint And Reason For Visit No Information Reason For Referral Reason For Referral No Information Plan Of Treatment Date Type Action Status Future Order: Lab Order CULTURE, AEROBIC BACTERIA ([id number]), Collected on: , Sent on: Sent History Of Present Illness Encounter Date Complaint History Of Prese nt Illness Nasal congestion Onset: 3 days a go. Severity: 6. Duration: 3 Days. It occurs in both nostrils. The patient describes it as partial. It occurs continuously. The problem is worsening. Symptom is aggravated by allergies. Associated symptoms include nasal congestion. Pertinent negatives include deviated septum, facial pain, food allergies, foreign body, headache, nasal drainage (anterior), nasal drainage (clear), nasal drainage (posterior), nasal drainage (purulent), seasonal allergies, snoring (mild), snoring (severe) and tearing. Additional information: Pt states has congestion. Ear fullness Onset: 1 month a go. Severity level is 6. Duration: 3 Days. The patient states the ear fullness is in both ears. It occurs daily. The problem is with no change. Denies aggravating factors. Associated symptoms include congestion (nasal), ear popping, ear pressure and fullness in ears. Pertinent negatives include bleeding from ear(s), cough, decreased appetite, dizziness, drainage (clear), drainage (purulent), ear pain, fever, hearing deficit, irritability, loss of balance, malaise, mastoid bone tenderness, nausea, redness/swelling outer ear, ringing in ears, tooth pain and vomiting. Additional information: Pt states has some fullness in both ears. Sore throat Onset: 3 days ag o. Severity level: 7. Duration: 3 Days. The problem has worsened. Associated symptoms include nasal congestion. Pertinent negatives include abdominal pain, chills, conjunctivitis, cough (barking), cough (productive), dehydration, diaphoresis, dyspnea, fever, halitosis, headache, hoarseness, joint pain, lymphadenopathy, malaise, not drinking, not eating, oral thrush, otalgia, post-nasal drainage, rash, redness, trismus and vomiting. Additional information: pt states past 3 days has sore throat- more at night unable to swallow Right ear feels plugged- Amira argueta is a 19-year-old adolescent female who has had approximately 3-week history of right ear concerns. Had a diagnosed ear infection and was treated with antibiotics. Not having pain now, but still feels like the right ear is plugged. No other recent history of ear infections. Never had ear surgery. Functional Status Date Functional Assessmen t No Information Instructions Date Instruction Additional Infor noel Recommend using Afri n or Edgar-Synephrine 2 sprays in both nostrils twice a day for up to 5 days to help with eustachian tube function.Also recommend trying to pop ears approximately 5 times before meals over the next several days or until right ear pressure seems to resolve. Related to Dysfunction of right eustachian tube Assessments Type Assessment Date No Information Patient Care Teams Name Effective Dates (start - stop) Status Members No Information
--- OUTSIDE RECORDS SUMMARY | 2025-01-17 02:01 | XMS_ITS | Clinical Summary ---
[facility] [place] [address] Care Team Providers Care Supervisory Aide Name Role Phone Other, Provider Primary Care Provider Unavailabl e Active Problems Problem Noted Date Diagnosed Date Ankle injury 10/16/2023 Leg pain 10/16/2023 Social History Tobacco Use Types Packs/Day Years Used Date Smoking Tobacco: Never Assessed Comments Unknown Sex and Gender Information Value Date Recorded Sex Assigned at Not on file Legal Sex Female 2:48 PM EST Gender Identity Not on file Sexual Orientation Not on file Plan of Treatment Health Maintenance Due Date Last Done Comments Depression Screening (PHQ2/9) 2005 Hepatitis B Screen 2005 Chlamydia Screening 06/28/2006 Well Child & Young Adult Visit 12/26/2008 DTaP/Tdap/Td Vaccines (1 - Tdap) 2012 HPV Vaccines (1 - 3-dose series) 2020 HIV SCREEN 2023 Hepatitis C Screening 2023 FLU VACCINE 04/14/2024 COVID-19 Vaccination ( - 2023-25 season) 2024 Pneumococcal Vaccine ALL (1 - PCV) 2055 Zoster (Shingrix) Vaccines (1 of 2) 2055 Insurance [employer] CHOICE POS II Care Teams Supervisory Aide Relationship Specialty Start Date End Date Other, Provider PCP - General 04/18/24
[2025-01-17 02:06] VITALS: BP 156/84; PULSE 92; RESP 16; TEMP 36.9; O2SAT 98; BMI 26.6
[2025-01-17 02:32] LABS: Strep A DNA Probe* NOT DETECTED (Not Detectd)
[2025-01-17 02:45] LABS: PCR FLU A Negative PCR FLU A (Negative); PCR FLU B Negative PCR FLU B (Negative); PCR RSV Negative PCR RSV (Negative); SARS PCR* Negative SARS-CoV-2 (Negative)
[2025-01-17] MEDS: IBUPROFEN 200 MG TABLET 600 MG PO (02:59)
--- OUTSIDE RECORDS SUMMARY | 2025-01-17 02:59 | XMS_ITS | Clinical Summary ---
[facility] Address [place] [address] Care Team Providers Care Manager Plumbing Name Role Phone Other, Provider Primary Care [...] Insurance [employer] CHOICE POS II Care Teams Manager Plumbing Relationship Specialty Start Date End Date Other, Provider PCP - General 04/18/24
--- OUTSIDE RECORDS SUMMARY | 2025-01-17 02:59 | XMS_ITS | Continuity of Care Document ---
Author Organization [facility] Address [address] [place] [address] Phone Care Team Providers Care Autocad Electrical Designer Name Role Phone Hi Elizabeth MD Unavailable [...] [facility], [address], [place], [place], [id number], [place] tel:[phone] [facility] No Information 5 Clara Do. [address], [place], [place], [id number], [place]. tel:[phone] OV, Estab Pt, Level III [facility], [address], [place], [place], [id number], tel:[phone] [facility] Ear fullness (chief complaint)So re throat (chief complaint)Na misha congestion (chief complaint) Chronic rhinitisPain in throatOther specified disorders of Eustachian tube, bilateral 4 Clara Do. [address] [facility] [address], [place], [place], [id number], . tel:[phone] OV, New Pt, Level III [facility], [address], [place], [place], [id number], tel:[phone] [facility] Right ear feels plugged- (chief complaint) Dysfunction of right eustachian tube 4 Bebo Ritchie. [address] [facility] [address], [place], [place], [id number], [place]. tel:[phone] Family History Family Member Type Diagnosis Age At Onset No Information Payers Payer name Insurance type Covered republican ID Authorkaren bejarano(sStanton Vázquez PPO PAR CI [id number] Social History Type Description Quantity Date Captured Comments Sex Female Smoking Status No Information Chief Complaint And Reason For Visit No Information Reason For Referral Reason For Referral No Information Plan Of Treatment Date Type Action Status Future Order: Lab Order CULTURE, AEROBIC BACTERIA ([id number]), Collected on: , Sent on: Sent History [...]
--- OUTSIDE RECORDS SUMMARY | 2025-01-17 02:59 | XMS_ITS | Clinical Summary ---
[facility] Address [address] [place] [id number] Care Team Providers Care Flexographic Printing Machinist Name Role Phone Pcp, No Primary Care Provider Unavailabl e Allergies No known active allergies Medications No known medications Encounters Date Type Department Care Team Description 01/05/2025 2:15 PM CDT Orders Only [facility] [address] [place] [address] Lab, [facility] 01/04/2025 Travel 12/13/2024 3:05 PM CDT Office Visit [facility] [address] [place] [address] Harjit Navarro MD Musculoskeletal Problem (Follow-up RIGHT Soto pain/Review MRI/Lexa Athlete ) 12/13/2024 Travel 12/08/2024 Travel 11/19/2024 2:15 PM ENTRY ANALYST Ancillary Procedure [facility] [id number] [place] [address] 11/19/2024 1:30 PM ENTRY ANALYST Ancillary Procedure [facility] [address] [address] 11/18/2024 Travel 11/14/2024 3:00 PM ENTRY ANALYST Office Visit [facility] at [address] [address] Harjit Navarro MD Musculoskeletal Problem (Lexa Athlete being seen for RIGHT Soto pain) 11/14/2024 Travel from Last 3 Months Immunizations Immunization Administration Dates Next Due COVID-19 VACCINE COMIRNATY (Dimeres 30MCG/0.3ML) 12YO+ PFS 07/05/2024 DTaP 06/24/2010, 7,01/02/2006,12/01,2005 [...] - Respiratory Rate 12 11/14/2024 10:16 PM ENTRY ANALYST Oxygen Saturation 99% 12/13/2024 3:20 PM CDT [...] FIBULA LEFT WO Routine 11/19/2024 2:37 PM ENTRY ANALYST Left leg numbness MR TIBIA FIBULA RIGHT WO Routine 11/19/2024 2:36 PM ENTRY ANALYST Pain in right soto from Last 3 Months Results * TSH WITH REFLEX (01/05/2025 2:19 PM CDT) TSH W/REFLEX TO FT4 1.51 mIU/L [facility] Comment: Reference Range 1-19 Years 0.50-4.30 Ranges First trimester 0.26-2.66 Second trimester 0.55-2.73 Third trimester 0.43-2.91 Blood BLOOD SPECIMEN / Unknown 01/05/2025 2:19 PM CDT 01/05/2025 2:19 PM CDT Harjit Navarro MD CHEMISTRY Final Res ult [facility] [address] [place] [address], [facility] [address] [place] [address] * (ABNORMAL) VITAMIN D 25 (DEFICIENCY) (01/05/2025 [...] D, (D2,D3), LC/MS/MS is recommended: order code [id number] (patients >2yrs). See Note 1 Note 1 For additional information, please refer to http://education.Belly Ballot.Metaset/faq/ECZ715 (This link is being provided for informational/ educational purposes only.) Blood BLOOD SPECIMEN / Unknown 01/05/2025 2:19 PM CDT 01/05/2025 2:19 PM CDT Harjit Navarro MD SEND OUTS Final Res ult [facility] [address] [place] [address], [facility] [address] [place] [address] * CBC AND DIFFERENTIAL (01/05/2025 2:19 PM CDT) Pathologist [facility] WHITE BLOOD CELL COUNT 7.5 3.8 - [...] MD HEMATOLOGY Final Res ult [facility] [address] [place] [address], [place] [phone] [facility] [address] [place] [address] * FERRITIN (01/05/2025 2:19 PM CDT) Pathologist [facility] FERRITIN 21 16 - 154 ng/mL [facility] Blood BLOOD SPECIMEN / Unknown 01/05/2025 2:19 PM CDT 01/05/2025 2:19 PM CDT Harjit Navarro MD CHEMISTRY Final Res ult [facility] [employer] [facility] [address] [place] [address], [place] [phone] [facility] [address] [place] [address] * COMP METABOLIC PANEL (01/05/2025 2:19 PM CDT) Pathologist [facility] GLUCOSE 98 65 - 99 mg/dL [facility] [...] 135 - 146 mmol/L [facility] POTASSIUM 4.3 3.8 - 5.1 mmol/L [facility] [...] Harjit Navarro MD CHEMISTRY Final Res ult [facility] [address] [place] [address], [facility] [address] [place] [address] * MR TIBIA FIBULA LEFT WO (11/19/2024 2:37 PM ENTRY ANALYST) Anatomical Region Laterality Modality LEG L Magnetic [...] TIBIA FIBULA RIGHT WO (11/19/2024 2:36 PM ENTRY ANALYST) Anatomical Region Laterality Modality LEG R Magnetic [...] Months Insurance [employer] Care Teams Flexographic Printing Machinist Relationship Specialty Start Date End Date Pcp, No . PCP - General 07/07/24
--- OUTSIDE RECORDS SUMMARY | 2025-01-17 02:59 | XMS_ITS | Clinical Summary ---
Author Organization [facility], [facility], and [facility] Address [address] [place] [address] Care Team Providers Care Belt Loop Cutter Name Role Phone Ayleen Gorman MD Unavailable [...] patient's age to complete this [place] [address] [address] [address] [place] [address] [place] [address] [place] [address] [place] [address] Care Teams Belt Loop Cutter Relationship Specialty Start Date End Date Ayleen Gorman MD [address] [address] Attending Physician Pediatric - General 02/07/20
--- NOTE | 2025-01-17 03:00 | ED.GENADULT ---
HPI - General Adult General Chief complaint: Sore Throat Stated complaint: possible strep Time Seen by Provider: 01/17/25 02:29 Source: patient Mode of arrival: ambulatory Limitations: no limitations History of Present Illness HPI narrative: 19-year-old female presents with a 1-1/2 day history of sore throat. No fever. No nausea or vomiting. No trauma or injury. Not immunocompromised, not on chemotherapy. Has been intermittently using unknown doses of Tylenol and ibuprofen the last day. It does sound as though she is under dosing based on her description but she does not know the exact mg. Has not had any ibuprofen since about 7:00 p.m. which is about 7 hours ago and was likely 400 mg. Reports that she was evaluated urgent care yesterday and they told her that a strep swab was not indicated based on her symptoms. She is wanting a strep swab and would prefer antibiotics today. States that she has no chronic past medical problems, no chronic long-term medications, no allergies, nonsmoker. ROS is notable for the HEENT symptoms only, otherwise denies times 12 systems. Related Data Home Medications ?Medication ?Instructions ?Recorded ?Confirmed ibuprofen [Advil] PO 08/05/24 01/16/25 Allergies Allergy/AdvReac Type Severity Reaction Status Date / Time No Known Drug Allergies Allergy Verified 01/17/25 02:09 [facility] Social History Smoking Status: Never smoker How often do you have a drink containing alcohol: never AUDIT-C Alcohol total score: 0 Non-prescribed substance use: denies use Exam Const: Vital Signs, click to edit/add: Vital Signs - 24 hr 01/17/25 02:06 Temperature 98.4 F Pulse Rate [Pulse Oximeter] 92 Respiratory Rate 16 Blood Pressure [Ri ght Upper Arm] 156/84 H Pulse Oximetry 98 Oxygen Delivery Me thod Room Air Documenting provider has reviewed patient's vital signs: yes Common normals: no apparent distress General appearance: cooperative and well kempt Other: Appears well nourished, well hydrated. Normal voice. HENMT: Common normals: normocephalic, nasal mucous membranes and turbinates normal and moist oral mucous membranes Head and scalp: normocephalic Nose: nasal mucous membranes and turbinates normal Other: Moist mucosa. Minimal erythema to the pharyngeal arches with 1+ tonsils. No asymmetric swelling, signs of abscess or airway compromise. No exudate. Eye: Common normals: conjunctivae normal General eye: normal appearance of both eyes Conjunctiva: conjunctiva(e) normal Neck & C-Spine: Common normals: full ROM Other: Very mild anterior cervical and submandibular lymphadenopathy. Resp: Common normals: normal respiratory effort, no use of accessory muscles and clear to auscultation bilaterally Effort & inspection: able to speak in complete sentences Auscultation: clear to auscultation bilaterally Cardio: Common normals: regular rate, regular rhythm, S1 normal heart sound, S2 normal heart sound and no murmurs Rate: regular rate Rhythm: regular rhythm Heart sounds: S1 normal and S2 normal Psych: Appearance: well kempt Attitude: engaged Insight: insight good Judgement: judgment good Skin: Common normals: no rashes or lesions noted General skin exam: no rashes or lesions noted Course Course ED Course: 19-year-old female with pharyngitis. No signs of airway compromise, asymmetric swelling, abscess, soft tissue spreading infection or other severe pathology. Strep and viral swabs are collected and are both negative as expected. Counseled patient that this is likely viral etiology though not 1 of the very few viruses we screen for here in the ED. With only a day and half of symptoms, a monotest is unlikely to be positive and it would not change our course of action as this is a virus as well. I do not think she would benefit from steroids based on the clinical appearance. Counseled patient that she is certainly under dosing her options for symptom control. Recommended Tylenol 1000 mg or 6 hours and or ibuprofen 600 mg every 6 hours. Will give ibuprofen here in the ED. prescription for Flexeril given through [employer] to help with sleep. Counseled on appropriate use. Alarm symptoms reviewed that would warrant ED presentation. Primary care follow-up if not improving in tend 14 days. Cleared to return to work and/or school duties at this time. Vital Signs Vital signs: Initial Vital Signs Temperature 98.4 F 01/17/25 02:06 Temperature Source Temporal Artery Scan 01/17/25 02:06 Pulse Rate 92 01/17/25 02:06 Respiratory Rate 16 01/17/25 02:06 Blood Pressure 156/84 H 01/17/25 02:06 Blood Pressure Mean 108 H 01/17/25 02:06 Blood Pressure Position Sitting 01/17/25 02:06 Pulse Oximetry 98 01/17/25 02:06 Oxygen Delivery Method Room Air 01/17/25 02:06 Vital Signs Temperature 98.4 F 01/17/25 02:06 Pulse Rate 92 01/17/25 02:06 Respiratory Rate 16 01/17/25 02:06 Blood Pressure 156/84 H 01/17/25 02:06 Pulse Oximetry 98 01/17/25 02:06 Oxygen Delivery Method Room Air 01/17/25 02:06 Temperature 98.4 F 01/17/25 02:06 Pulse Rate 92 01/17/25 02:06 Respiratory Rate 16 01/17/25 02:06 Blood Pressure 156/84 H 01/17/25 02:06 Pulse Oximetry 98 01/17/25 02:06 Oxygen Delivery Method Room Air 01/17/25 02:06 Medications Administered Medications: Discontinued Medications Generic Name Dose Route Start Last Admin Trade Name Freq PRN Reason Stop Dose Admin Ibuprofen 600 mg 01/17/25 02:52 01/17/25 02:59 Ibuprofen 200 Mg Tablet PO 01/17/25 02:53 600 mg ONCE ONE Administration Medical Decision Making Lab Data Labs: Lab Results 01/17/25 Range/Units 02:05 SARS-CoV-2 (PCR) Negative SARS-CoV-2 (Negative) Influenza Type A (PCR) Negative PCR FLU A (Negative) Influenza Type B (PCR) Negative PCR FLU B (Negative) RSV (PCR) Negative PCR RSV (Negative) Group A Strep DNA NOT DETECTED (Not Detectd) Discharge Plan Discharge Clinical Impression: Sore throat Patient Disposition: Home w/ Parent or Adult Condition: Stable Instructions: Pharyngitis (ED) Additional Instructions: As we discussed, there are no signs of dangerous swelling in your throat or airway, no classic signs of mono. Your strep test is negative. Testing for COVID, influenza a and RSV are also negative. Viral sore throats are very common this time of year. Unfortunately, antibiotics will not make this go away faster. It is important that you are continuing to drink lots of fluids. I do recommend saltwater gargles take decrease the inflammation. Your given a dose of ibuprofen 600 mg. Please repeat this every 6 hours as needed for discomfort. Based on your body frame, you can handle 3 tablets of ibuprofen every 6 hours. You should also be taking 1000 mg of Tylenol every 6 hours as well to help with discomfort. I will give her prescription for a few muscle relaxants to help you sleep. You probably will only need this for a couple of nights. It will certainly make you a little drowsy in the morning, consider only using a half of a tablet tonight since it is already so late. You should come to emergency department if you have severe airway compromise were you cannot breathe, if you have the inability to swallow your own spit and have dramatic voice changes due to swelling and inflammation or are so weak that you can not walk from your bed to the bathroom. Sore throat can linger for up to a few weeks. I would recommend that you make a clinic appointment to be re-evaluated if things have not improved in 10 more days. Testing for other viral illnesses like mono will not change the course of illness and are not accurate this early in the illness. You are medically cleared to return to class, work and all typical duties. Activity Level: No Restrictions Discharge Diet: Regular Prescriptions: No Action ibuprofen [Advil] PO Follow Up/Referrals: Provider,Not a Local [Primary Care Provider] - Stand Alone Forms: [employer] Info Instructions
== END 2025-01-17 02:59 | disposition home or self-care (01) ==
LOC: ED 02:57
PROVIDERS: Emergency Provider Family Medicine
DX: J02.9 Acute pharyngitis, unspecified (principal)
CPT/HCPCS: 87631; 87651; 99283; A9270